=== PATIENT | female | born 1980 | race Caucasian/White ===

== ENCOUNTER → 2017-03-16 | Day surgery (SDC) | payer OTHER ==
[~2017-03-16] VITALS: Ht 152.4 cm; Wt 41.7 kg
[~2017-03-16] MED LIST: FOLI1TAB86 PO; GLYCOPYRROLATE INJ 0.2 MG/ML 2 ML VIAL As Ordered ONE; HYDR-3713 PO; IBUP100SUS PO; IBUP1TAB6 GT; KETOROLAC 30 MG/ML VIAL (J1885) As Ordered ONE; KETOROLAC 30 MG/ML VIAL (J1885) IV PRN; LABE20TAB PO; LACT20EL PO; LIDOCAINE 2% INJ 100 MG/5 ML SDV (FOR ANES.) As Ordered ONE; LIDOCAINE 2% W/ EPINEPHRINE 1.7 ML DENTAL INJ As Ordered ONE; LISI10TA4 PO; LR 1,000 ML IV ONE; LR 1,000 ML IV SCH; MEPERIDINE INJ 25 MG/ML VIAL (J2175) As Ordered ONE; MIDAZOLAM INJ 2 MG/2 ML VIAL (J2250) As Ordered ONE; MULTTAB4 PO; NEOSTIGMINE 1MG/ML 5 ML SYRINGE (J2710) As Ordered ONE; NICO21DI26 TD; ONDANSETRON 4MG/2ML VIAL (J2405) As Ordered ONE; ONDANSETRON 4MG/2ML VIAL (J2405) IV PRN; OXAZ15CA PO; PERCOCET 5MG/325MG TAB As Ordered ONE; PERCOCET PO; PROPOFOL 200 MG/20 ML VIAL As Ordered ONE; ROCURONIUM BROMIDE 50 MG/5 ML VIAL/SYRINGE As Ordered ONE; STUATAB PO; TYLE167L PO; VITA100T60 PO; VITMTA PO; dexameTHASONE 4 MG/ML 1ML VIAL (J1100) As Ordered ONE; fentaNYL 100 MCG/2 ML INJECTION (J3010) As Ordered ONE
[2017-03-16 11:04] LABS: CONTROL LINE UCG INT CTR LINE PRESENT
[2017-03-16] MEDS: fentaNYL 100 MCG/2 ML INJECTION (J3010) IV PRN ×4 (13:22→13:38)
[2017-03-16] MEDS: MEPERIDINE INJ 25 MG/ML VIAL (J2175) IV PRN ×2 (13:33→13:38)
[2017-03-16] MEDS: PERCOCET 5MG/325MG TAB PO PRN ×2 (13:55→14:21)
[2017-03-16 14:55] VITALS: BP 129/63
--- NOTE | 2017-03-18 08:27 | RO ---
DATE OF PROCEDURE: 03/16/2017 PREPROCEDURE DIAGNOSIS: Nonrestorable dentition due to caries with periodontal disease of the listed teeth numbers 3, 5, 6, 7, 8, 10, 11, 12, 14, 15, 16, 18, 19, 20, 21, 22, 23, 24, 25, 26, 27, 28, 29, 31 and 32. POSTPROCEDURE DIAGNOSIS: Nonrestorable dentition due to caries with periodontal disease of the listed teeth numbers 3, 5, 6, 7, 8, 10, 11, 12, 14, 15, 16, 18, 19, 20, 21, 22, 23, 24, 25, 26, 27, 28, 29, 31 and 32. PROCEDURE: Surgical removal of teeth 3, 5, 6, 7, 8, 10, 11, 12, 14, 15, 16, 18, 19, 20, 21, 22, 23, 24, 25, 26, 27, 28, 29, 31 and 32 and four-quadrant alveoloplasty. SURGEON: Dr. Misael Casas PROTOTYPE SEWER: ANESTHESIA: General nasal endotracheal. INDICATIONS: The patient is a 36-year-old female who was referred by general dentist for removal of all remaining teeth. Patient with a significant medical history and hypertension and anxiety, felt necessary to have this performed in the operating room under general anesthesia. DESCRIPTION OF PROCEDURE: The patient was brought to the operating room (OR) per anesthesia, placed supine upon the operating room table wherein general nasal endotracheal anesthetic was undertaken without difficulty. After the usual sterile prep and drape for an intraoral procedure was performed, a throat pack was placed. 2% Xylocaine with 1:100,000 epinephrine was injected by way of infiltration fashion along the surgical sites, approximately 5.5 mL. Attention first turned to the left mandible. A full thickness mucoperiosteal incision was made from the left external oblique ridge of the mandible, carried forward to the midline. Full thickness mucoperiosteal flap was then raised with a periosteal elevator exposing the broken down retained roots of the bottom teeth as listed, 18,19, 20, 21, 22, 23 and 24. Teeth areas of 18, 19, 20 required removal of buccal bone support with the Frost drill and copious sterile saline to identify the roots and to gain access for mobilization of the tooth roots. The teeth were elevated and delivered with lower forceps without difficulty, buccal bone and alveoplasty was performed. The sockets were then curetted, irrigated copiously and closed with #3-0 gut continuous interlocking suture. Attention was then turned to the left maxilla, teeth numbers 10, 11, 12, 14, 15, 16. Again, a 15 scalpel blade was used to make a full thickness mucoperiosteal incision, carried from the left maxillary tuberosity forward to the midline. Full thickness flap was then raised with a periosteal elevator, exposing the area of the broken down teeth. Buccal bone support overlying the teeth were removed for access and to mobilize them. The teeth were then elevated and delivered. The buccal bone was then smoothed by way of buccal alveoplasty, again sockets were curetted, irrigated and then closed with #3-0 gut continuous interlocking suture. Attention was then turned to the right mandible. Teeth 32, 31, 29, 28, 27, 26 and 25 were removed in a very similar fashion to the mandibular left side. Again, a #15 scalpel blade used to make a full thickness mucoperiosteal incision, carried from the right external oblique ridge forward to the midline. Full thickness flap raised with the periosteal elevator, gaining access. Buccal bone support removed as necessary for access and to mobilize the broken down teeth. The teeth were then elevated and removed with lower forceps and elevator technique. The buccal alveoplasty was performed again, sockets were lightly curetted, irrigated and then closed with #3-0 gut continuous interlocking suture. Attention was then turned to the right maxilla. Teeth 3, 5, 6, 7 and 8. Again, a #15 scalpel blade used to make a full thickness incision, carried from the area of the right tuberosity forward to the midline. Full thickness flap raised with the periosteal elevator, gaining access to the buccal bone support. Buccal bone was then removed as necessary for access to the teeth and to mobilize the remaining roots. The teeth were elevated and removed. Buccal alveoplasty again performed as necessary. Sockets were curetted, irrigated copiously and then closed with #3-0 gut continuous interlocking suture. At the termination of the procedure, the oropharynx was noted to be free of debris. There was no active heme. The patient's throat pack was removed and was awakened per anesthesia. The estimated blood loss was approximately 75 mL, fluids of 800 mL in crystalloid solution. Needle and sponge count was correct. The teeth were sent for identification to pathology. DISPOSITION: The patient was extubated in the operating room, taken to the recovery room, breathing spontaneously in stable condition. MTDD
== END | disposition home or self-care (01) ==
LOC: M SDC 10:13
PROVIDERS: ATTEND Dentist Oral and Maxillofacial Surgery
DX: K02.9 Dental caries, unspecified (principal); K05.6 Periodontal disease, unspecified; I10 Essential (primary) hypertension; F41.9 Anxiety disorder, unspecified; Z88.7 Allergy status to serum and vaccine; Z79.899 Other long term (current) drug therapy; Z72.0 Tobacco use
CPT/HCPCS: 84703; 88300; D7210; D7310; D9223

== ENCOUNTER 2024-12-28 21:25 | Emergency (ER) | payer MEDICAID, OTHER, SELFPAY ==
[~2024-12-28] VITALS: Ht 152.4 cm; Wt 43.0 kg
[~2024-12-28 21:25] MED LIST changes: -GLYCOPYRROLATE INJ 0.2 MG/ML 2 ML VIAL As Ordered ONE; +IBUP100S44 PO; -IBUP100SUS PO; -KETOROLAC 30 MG/ML VIAL (J1885) As Ordered ONE; -KETOROLAC 30 MG/ML VIAL (J1885) IV PRN; +LACT15SO PO; -LACT20EL PO; -LIDOCAINE 2% INJ 100 MG/5 ML SDV (FOR ANES.) As Ordered ONE; -LIDOCAINE 2% W/ EPINEPHRINE 1.7 ML DENTAL INJ As Ordered ONE; +LISI10TA22 PO; -LISI10TA4 PO; -LR 1,000 ML IV ONE; -LR 1,000 ML IV SCH; -MEPERIDINE INJ 25 MG/ML VIAL (J2175) As Ordered ONE; -MIDAZOLAM INJ 2 MG/2 ML VIAL (J2250) As Ordered ONE; -NEOSTIGMINE 1MG/ML 5 ML SYRINGE (J2710) As Ordered ONE; -ONDANSETRON 4MG/2ML VIAL (J2405) As Ordered ONE; -ONDANSETRON 4MG/2ML VIAL (J2405) IV PRN; +OXYC1TAB23 PO; -PERCOCET 5MG/325MG TAB As Ordered ONE; -PERCOCET PO; -PROPOFOL 200 MG/20 ML VIAL As Ordered ONE; -ROCURONIUM BROMIDE 50 MG/5 ML VIAL/SYRINGE As Ordered ONE; -dexameTHASONE 4 MG/ML 1ML VIAL (J1100) As Ordered ONE; -fentaNYL 100 MCG/2 ML INJECTION (J3010) As Ordered ONE
[2024-12-28 21:28] VITALS: TEMP 98.1; O2SAT 98
[2024-12-28 21:30] VITALS: BP 165/100
== END 2024-12-28 23:41 | disposition left against medical advice (07) ==
LOC: M ED 21:25
DX: Z53.21 Procedure and treatment not carried out due to patient leaving prior to being seen by health care provider (principal)

== ENCOUNTER 2025-04-19 22:09 | Emergency (ER) | payer MEDICAID, OTHER ==
[~2025-04-19] VITALS: Ht 165.1 cm; Wt 39.3 kg
[~2025-04-19 22:09] MED LIST changes: -IBUP1TAB6 GT; +SFHIBU600 GT
[2025-04-19 22:12] VITALS: BP 180/120; TEMP 97; O2SAT 97
== END 2025-04-20 01:31 | disposition left against medical advice (07) ==
LOC: M ED 22:09
DX: Z53.21 Procedure and treatment not carried out due to patient leaving prior to being seen by health care provider (principal)

== ENCOUNTER 2025-04-20 13:19 | Emergency (ER) | payer OTHER ==
[2025-04-20 13:27] VITALS: TEMP 97.7
[2025-04-20 14:54] VITALS: BP 162/82
[2025-04-20] MEDS: ACETAMINOPHEN 500 MG TAB PO ONE (14:55)
== END 2025-04-20 15:05 | disposition home or self-care (01) ==
LOC: M ED 13:53
DX: S52.351A Displaced comminuted fracture of shaft of radius, right arm, initial encounter for closed fracture (principal); W19.XXXA Unspecified fall, initial encounter; Y92.009 Unspecified place in unspecified non-institutional (private) residence as the place of occurrence of the external cause; Y93.01 Activity, walking, marching and hiking; Y99.9 Unspecified external cause status; I10 Essential (primary) hypertension; F17.200 Nicotine dependence, unspecified, uncomplicated

== ENCOUNTER → 2025-04-22 | Outpatient (CLI) | payer OTHER | LOC: M SOG 13:56 | PROVIDERS: ATTEND Orthopaedic Surgery | DX: M25.531 Pain in right wrist (principal) ==

== ENCOUNTER → 2025-04-29 | Outpatient (CLI) | payer OTHER | LOC: M SOG 07:00 | PROVIDERS: ATTEND Orthopaedic Surgery | DX: S52.501D Unspecified fracture of the lower end of right radius, subsequent encounter for closed fracture with routine healing (principal); M25.531 Pain in right wrist ==

== ENCOUNTER 2025-05-02 21:08 | Emergency (ER) | payer OTHER ==
[~2025-05-02] VITALS: Ht 152.4 cm; Wt 41.6 kg
[2025-05-02 21:14] VITALS: TEMP 97.1; O2SAT 99
[2025-05-02 22:00] VITALS: BP 187/108
== END 2025-05-02 22:08 | disposition left against medical advice (07) ==
LOC: M ED 21:08
DX: Z53.21 Procedure and treatment not carried out due to patient leaving prior to being seen by health care provider (principal)

== ENCOUNTER → 2025-05-15 | Outpatient (CLI) | payer OTHER | LOC: M SOG 07:21 | PROVIDERS: ATTEND Orthopaedic Surgery | DX: S52.501D Unspecified fracture of the lower end of right radius, subsequent encounter for closed fracture with routine healing (principal) ==

== ENCOUNTER → 2025-06-05 | Outpatient (CLI) | payer OTHER | LOC: M SOG 07:27 | PROVIDERS: ATTEND Orthopaedic Surgery | DX: S52.571D Other intraarticular fracture of lower end of right radius, subsequent encounter for closed fracture with routine healing (principal); S62.326D Displaced fracture of shaft of fifth metacarpal bone, right hand, subsequent encounter for fracture with routine healing ==

== ENCOUNTER → 2025-07-20 | Outpatient (CLI) | payer OTHER | LOC: M SOG 07:50 | PROVIDERS: ATTEND Orthopaedic Surgery | DX: S52.501P Unspecified fracture of the lower end of right radius, subsequent encounter for closed fracture with malunion (principal) ==